=== PATIENT | male | born 1960 | race Hispanic/Latino ===

== ENCOUNTER → 2017-11-11 | Outpatient (CLI) | payer OTHER ==
--- NOTE | 2017-11-11 09:59 | Diagnostic Imaging Report ---
PROCEDURE:X-RAY ABDOMEN - KUB COMPARISON:None. INDICATIONS:UTI, MALIGNANT NEOPLASM OF PROSTATE FINDINGS: There is a non-obstructed bowel-gas pattern. There are no calcifications projected over the renal shadows, expected course of the ureters or bladder. There are no acute osseous abnormalities. The lung bases are clear. CONCLUSION: No acute radiographic abnormality. Dictated by: Lam Manzo M.D. on 11/11/2017 at 10:00 Electronically approved by: Lam Manzo M.D. on 11/11/2017 at 10:00
--- NOTE | 2017-11-11 11:22 | Diagnostic Imaging Report ---
PROCEDURE:US RETROPERITONEAL ( KIDNEY ). COMPARISON:Abdomen one view 11/11/2017. INDICATIONS:UTI, Screening for malignant neoplasm TECHNIQUE: Nj-scale and color sonographic images of the bilateral kidneys and bladder where obtained in transverse and longitudinal planes. FINDINGS: RIGHT KIDNEY: 10.4 cm, cortex 1.8 cm Cysts: None. Solid masses: None. Stones: 0.4 x 0.2 x 0.3 cm non-shadowing echogenic focus in the interpolar region. Hydronephrosis: None. Echogenicity: Normal. LEFT KIDNEY: 12.5 cm, cortex 2.2 cm Cysts: None. Solid masses: None. Stones: None. Hydronephrosis: None. Echogenicity: Normal. Bladder: Bilateral ureteral jets are visualized. Normal contour. Prostate: 3.6 x 3.3 x 4.4 cm. Volume 26.7 cc. CONCLUSION: No acute sonographic abnormality. Nonobstructing right nephrolithiasis. Dictated by: Lam Manzo M.D. on 11/11/2017 at 11:23 Electronically approved by: Lam Manzo M.D. on 11/11/2017 at 11:23
== END ==
LOC: US 08:56
PROVIDERS: ATTEND Urology
DX: N39.0 Urinary tract infection, site not specified (principal); Z12.5 Encounter for screening for malignant neoplasm of prostate
CPT/HCPCS: 74018; 76770